=== PATIENT | male | born 1995 | race Hispanic/Latino ===

== ENCOUNTER 2019-08-25 12:52 | Emergency (ER) | payer OTHER ==
[2019-08-25] MEDS ORDERED: ACETAMINOPHEN EXTRA STRENGTH 500 MG TABLET ONE (13:21)
[2019-08-25] MEDS ORDERED: ONDANSETRON ODT 4 MG TAB ONE (13:21)
== END 2019-08-25 13:59 | disposition home or self-care (01) ==
LOC: EDH 12:52
DX: J11.1 Influenza due to unidentified influenza virus with other respiratory manifestations (principal); Z90.49 Acquired absence of other specified parts of digestive tract